=== PATIENT | male | born 1930 | race Caucasian/White ===

== ENCOUNTER 2016-10-04 09:51 | Inpatient (IN) | payer MEDICARE ==
[~2016-10-04] VITALS: Ht 185.4 cm; Wt 81.9 kg
[2016-10-04] MEDS ORDERED: NS 1000P @30 MLS/HR (KVO) IV SCH (10:15)
[2016-10-04 10:24] VITALS: BP 110/69; PULSE 98; RESP 16; TEMP 96.9; O2SAT 94
[2016-10-04] MEDS ORDERED: SIMV20TA PO (10:28)
[2016-10-04] MEDS ORDERED: FURO1TAB60 PO (10:28)
[2016-10-04] MEDS ORDERED: K-TA10TA PO (10:28)
[2016-10-04] MEDS ORDERED: VITA2000 PO (10:28)
[2016-10-04] MEDS ORDERED: ASPI81TA11 PO (10:28)
[2016-10-04] MEDS ORDERED: IOHEXOL 350 MG/ML 50 ML BTL (for Cath Lab) OTHER ONE (12:27)
[2016-10-04] MEDS ORDERED: HEPARIN-NS/PF INJ 500 ML ONE (12:39)
[2016-10-04] MEDS ORDERED: MIDAZOLAM HCL 2 MG/2 ML VIAL ONE (12:40)
--- NOTE | 2016-10-04 12:53 | RADRPT ---
EXAM DATE/TIME: 10/04/2016 11:58 [place] COMPARISON: No previous studies available for comparison. INDICATIONS : Evaluate for pneumoia, pneumothorax, or communicable disease. Pre AVR. Shortness of breath for 4 days . MEDICAL HISTORY : None. SURGICAL HISTORY : None. ENCOUNTER: Initial ACUITY: 4 - 6 days PAIN SCORE: 0/10 LOCATION: Bilateral chest FINDINGS: There is mild basilar edema and small bilateral effusions. Cardiac contours are grossly satisfactory for technique and projection. CONCLUSION: Mild basilar edema and small effusions. Elpidio Shea MD on October 04, 2016 at 12:51 Board Certified Radiologist. This report was verified electronically.
--- NOTE | 2016-10-04 13:52 | CATHPROC ---
[employer] HIS Report Study Information Study Number Admission Scheduled Start Study Start [id number] Oct 04 2016 9:51AM 10/04/2016 Oct 04 2016 12:27PM [place] Service Cardiac Catheterization Admit Source Facility Department Other [facility] - Acid Polymerization Operator Physician and Clinical Staff Initial Reid Jason Radiology Physician Assistant Twan RN, Justo Recorder Jovani Hand,LABORATORY ASSOCIATE(BS) Scrub Ebonie Alejandre,RT(R) (BS) X-Ray Cristy Mcdonald,RT(R) Procedures Performed Procedure Location (Site) Vessel Name Coronary Angiograms LCA Left Coronary Coronary Angiograms RCA Right Coronary Wire insertion Fem Art (right) Femoral Art Equipment Time Tailor Men'S Ready To Wear Description Size Mfg Part Number Used/Scraped ARROW INTERNATIONAL CATHETER, FR.7 BALLOON [id number] 12:36 FR 7 Used INC. WEDGE PRESSURE *[id number] TRANSDUCER, TRJooceAVE [id number] 12:36 DEAN JORGENSEN * Used W/STOCKCOCK *[id number] 534-545T *[id number] 534-520T *[id number] 534-622T *[id number] 534-521T *[id number] WIRE, AMPLATZ SUPER STIFF 13:28 [employer] 3MMJ 54453 *[id number] Used 3MMJ [id number] 12:36 [employer] INDUSTRIES PACK, CCL CUSTOM * Used *[id number] 12:36 [employer] PACER PEN, SKIN DUAL W/ RULER * Used *[id number] 13:00 [employer] MEDICAL SHEATH, FR6.5 PRELUDE 11CM FR 6.5 038ACT Used *[id number] 12:36 [employer] MEDICAL WIRE, 3MMJ .035 180CM 180CM Used *[id number] 13:16 [employer] MEDICAL WIRE, EXCHANGE 260CM 3MMJ 260CM Used *[id number] 13:11 [employer] MEDICAL WIRE, STRAIGHT TIP .035 * Used *[id number] 12:36 NAMIC MANIFOLD, 2 PORT * Used *[id number] 12:36 NAMIC MANIFOLD, 4 PORT * Used *[id number] 13:03 NAMIC TUBING, HIGH PRESSURE 20" 20" Used *[id number] 12:36 [employer] OMNIPAQUE, 350 MG, 150ML 150ML [id number] Used [id number] 12:36 VINCENT MEDICAL BLANKET,WARM AIR CCL * Used *[id number] 12:36 TERUMO MEDICAL SHEATH, FR5 TERUMO (10CM) FR 5 Used *[id number] 12:36 [employer]UM[employer] MEDICAL SHEATH, FR7 TERUMO (10CM) FR 7 Used *[id number] 13:14 [employer] PIGTAIL DUAL LUMEN CATHETER FR 6 9862 *[id number] Used Equipment Model, Serial, Lot Number and Expiration Data Description Model Number Serial Number Lot Number Expiration Date WIRE, EXCHANGE 260CM 3MMJ [id number] 07-29-2019 History: Current Medications Medication Dosage/Unit Route Frequency Last Date/Time Taken ASA Statins (any) History: Allergies Allergy Reaction No Known Allergies History: Risk Factors Family History of Hypertension Dyslipidemia Previous AL Previous Heart Failure Premature CAD No Yes No No Yes Prior Valve Prior PCI Prior CABG Surgery No No No Cerebrovascular Peripheral Artery Chronic Lung On Dialysis Diabetes Disease Disease Disease No No No No No History: Stress Tests Stress or Imaging Studies Performed No History: Other Current Smoker No Labs Hgb (g/dl) Hct (%) WBC (l/cumm) Platelets (thousands) 11.60-17.00 35.00-51.00 4.00-11.00 150.00-450.00 13.8 42.4 10.2 298 Glucose (mg/dl) BUN (mg/dl) Creatinine (mg/dl) BUN:Creatinine (1:x) 74.00-106.00 7.00-18.00 0.50-1.30 10.00-20.00 134 17 1.1 15.5 Na (meq/l) K (meq/l) 136.00-145.00 3.50-5.10 133 5.3 INR (PTT:PT) 0.90-1.10 1.1 CPK-MB (ng/ML) 0.50-3.60 Not Drawn Medication Medication Total Dose (Bolus/Oral) Medication Total Dosage/Unit 1% XYLOCAINE 20 mL FENTANYL 50 mcg VERSED 2 mg Medications (Bolus/Oral) Medication Time Given Dosage/Unit Administered By Reason FENTANYL 10/04/2016 12:56:33 PM 50 mcg Patient arrived on 50 mcg FENTANYL via Peripheral IV. Ordered by Reid Burns. 1% XYLOCAINE 10/04/2016 12:57:28 PM 20 mL Reid Burns 20 mL 1% XYLOCAINE given in lab by Reid Burns in Right Groin via Subcutaneous. Ordered by Reid Burns. VERSED 10/04/2016 12:57:36 PM 2 mg Patient arrived on 2 mg VERSED via Peripheral IV. Ordered by Reid Burns. Medication (Drip) Medication Time Given Dosage/Unit Concentration/Unit Diluent (ml) Solution IV Solutions 10/04/2016 12:27:32 PM 0 mL (IV) 500 NaCl .9 Patient arrived on IV Solutions in Left Forearm via Peripheral IV. Pump/Drip Flow = 20 ml/hr using Na Cl .9. Ordered by Reid Burns. Initial Case Assessment Cardiovascular HR Rhythm NIBP Chest Pain 98 SR 93/63 0 Edema Present Skin color Skin Mild Normal Warm Dry Circulatory - Right Pulses Dorsalis Pedis Femoral d 3 Scale (0,1,2,3,4,d) Circulatory - Left Pulses Dorsalis Pedis Femoral d 3 Scale (0,1,2,3,4,d) Circulatory - Lower Extremities Color Lower Right Color Lower Left Normal Normal Neurological State Oriented to time-place- Alert Moves all extremities person Respiration - General Respiration Rate SpO2 (%) (B/min) 20 96 Final Case Assessment Cardiovascular HR Rhythm NIBP Chest Pain 98 SR 93/63 0 Edema Present Skin color Skin Mild Normal Warm Dry Circulatory - Right Pulses Dorsalis Pedis Femoral d 3 Scale (0,1,2,3,4,d) Circulatory - Left Pulses Dorsalis Pedis Femoral d 3 Scale (0,1,2,3,4,d) Circulatory - Lower Extremities Color Lower Right Color Lower Left Normal Normal Neurological State Oriented to time-place- Alert Moves all extremities person Respiration - General Respiration Rate SpO2 (%) (B/min) 20 96 Chronological Log Time Study Chronological Log 12:27:18 Patient arrived via Bed. 12:27:19 Patient Name, D.O.B, / Armband Verified By R.N. 12:27:20 Consent signed by the physician and the patient and verified by the Acid Polymerization Operator staff. 12:27:20 Pre-op and post- op instructions given; patient acknowledges understanding of instructions. 12:27:26 Patient has been NPO for Less than 6Hrs. 12:27:27 Skin Breakdown- 12:27:29 Patient Warmer Placed on the Table. 12:27:32 A # 20 IV was noted in the Forearm (left). Grade = 0 Patient arrived on IV Solutions in Left Forearm via Peripheral IV. Pump/Drip Flow = 20 ml/hr us ing NaCl .9. Ordered by 12:27:32 Reid Burns. 12:27:33 History and physical on the chart or being dictated. Assessment: Initial Case, HR=98 BPM, Rhythm=SR, NIBP=93/63 mmhg, Chest Pain=0, Edema=Mild, [place] r=Normal, Skin = Warm, Dry Right Pulses: Franco Ped=d, Femoral=3 Left Pulses: Franco Ped=d, Femoral=3 12:27:34 Lower Right Extremities: Color=Normal Lower Left Extremities: Color=Normal Neurological: State=Alert, Ox3, AMBRIZ Respiration: Resp=20 B/min, SpO2=96 % Vitals capture started with the following parameters, Patient=Adult, Interval=5 min, Initial Pr nvqlfb=513 mmHg, 12:32:02 Deflation Rate=5 mmHg 12:32:39 CP=870 bpm, ISAY=933/69 mmhg, SpO2=95.0 %, Resp=9 B/min, Pain=0, Sejal=10, Damon=2 12:37:32 HR=98 bpm, NIBP=93/63 mmhg, SpO2=96.0 %, Resp=26 B/min, Pain=0, Sejal=10, Damon=2 12:38:16 Reference ECG taken 12:42:31 HR=98 bpm, FZOA=156/57 mmhg, SpO2=96.0 %, Resp=38 B/min, Pain=0, Sejal=10, Damon=2 12:47:32 HR=99 bpm, MTAC=905/63 mmhg, SpO2=96.0 %, Resp=35 B/min, Pain=0, Sejal=10, Damon=2 12:47:56 NIBP STAT measurement started. 12:48:04 Pressure channel 1 zeroed. 12:48:21 ZE=902 bpm, TBHX=300/66 mmhg, SpO2=96.0 %, Resp=28 B/min, Pain=0, Sejal=10, Damon=2 12:51:24 Bilateral groins prepped with 2% chlorhexidine, and with a 3 min. waiting time. 12:51:29 MD arrived. 12:52:33 ZG=840 bpm, KRRL=238/65 mmhg, SpO2=96.0 %, Resp=20 B/min, Pain=0, Sejal=10, Damon=2 Time Out. Correct patient, correct procedure,correct physician, power injector not loaded with contrast with surgical 12:55:02 team present. Time Out Concurred by MD, individual staff in procedure 12:55:39 Pressure channel 1 zeroed. 12:55:41 Pressure channel 2 zeroed. 12:56:33 Patient arrived on 50 mcg FENTANYL via Peripheral IV. Ordered by Reid Burns. 12:57:19 Case Start 12:57:28 20 mL 1% XYLOCAINE given in lab by Reid Burns in Right Groin via Subcutaneous. Ordered by Reid Burns. 12:57:34 LW=133 bpm, UINK=789/64 mmhg, SpO2=95.0 %, Resp=25 B/min, Pain=0, Sejal=10, Damon=2 12:57:36 Patient arrived on 2 mg VERSED via Peripheral IV. Ordered by Reid Burns. 12:57:55 Access site was Right Femoral Artery. 12:58:14 A SHEATH, FR6.5 PRELUDE 11CM FR 6.5 was advanced into the Fem Art (right) using the Percuta neous technique. 12:59:00 Access site was Right Femoral Vein. 12:59:32 A SHEATH, FR7 TERUMO (10CM) FR 7 was advanced into the Fem Vein (right) using the Percutane ous technique. 13:00:35 A CATHETER, FR.7 BALLOON WEDGE PRESSURE FR 7 was inserted via Fem Vein (right) Recorded Pressure: RA, JP=393, Condition=Condition 1 13:01:46 (Right Atrium) RA Recorded Pressure: RV, TD=082, Condition=Condition 1 13:02:02 (Right Ventricle) RV 13:02:35 RQ=606 bpm, XXMH=225/54 mmhg, SpO2=91.0 %, Resp=26 B/min, Pain=0, Sejla=10, Damon=2 Recorded Pressure: MPA, HR=97, Condition=Condition 1 13:06:26 (Main Pulmonary Artery) MPA 60/29/42 13:07:03 Saturation: Site=PA (Pulmonary Artery) , O2=48.4 %, Hgb=13.8 gm/dl, Condition=Condition 1. Used in calculation. 13:07:32 HR=98 bpm, AAKJ=342/67 mmhg, SpO2=92.0 %, Resp=25 B/min, Pain=0, Sejal=10, Damon=2 13:07:52 Saturation: Site=FA (Femoral Artery) , O2=92.8 %, Hgb=13.8 gm/dl, Condition=Condition 1. Us ed in calculation. 13:08:16 Korbel Rasheed Catheter Removed A AL 1 INFINITI CATHETER FR 5 was advanced over a wire. OMNIPAQUE, 350 MG, 150ML 150ML was used for 13:08:31 injections. 13:12:35 XR=382 bpm, FOCQ=771/61 mmhg, SpO2=97.0 %, Resp=20 B/min, Pain=0, Sejal=10, Damon=2 13:13:18 A WIRE, STRAIGHT TIP .035 * was inserted via Fem Art (right). 13:13:24 The previous wire was exchanged for a WIRE, 3MMJ .035 180CM 180CM. After removing the current catheter a PIGTAIL DUAL LUMEN CATHETER FR 6 was advanced over a WIRE , 3MMJ .035 13:13:33 180CM 180CM. 13:16:59 Catheter was removed A AL 1 INFINITI CATHETER FR 5 was advanced over a wire. OMNIPAQUE, 350 MG, 150ML 150ML was used for 13:17:20 injections. 13:17:32 A WIRE, STRAIGHT TIP .035 * was inserted via Fem Art (right). 13:17:34 HR=99 bpm, UXGB=996/62 mmhg, SpO2=97.0 %, Resp=20 B/min, Pain=0, Sejal=10, Damon=2 13:19:54 The previous wire was exchanged for a WIRE, EXCHANGE 260CM 3MMJ 260CM. After removing the current catheter a PIGTAIL DUAL LUMEN CATHETER FR 6 was advanced over a WIRE , EXCHANGE 13:20:04 260CM 3MMJ 260CM. Recorded Pressure: LV, Ao, SH=514, Condition=Condition 1 13:21:31 (Left Ventricle) LV 128/10/21, (Aorta) Ao -17/-23/-20 Recorded Pressure: LV, Ao, CN=357, Condition=Condition 1 13:22:03 (Left Ventricle) LV 130/12/23, (Aorta) Ao 84/52/66 Recorded Pressure: LV, Ao, XN=309, Condition=Condition 1 13:22:26 (Left Ventricle) LV 114/29/37, (Aorta) Ao 92/49/68 13:22:35 HR=97 bpm, NIBP=95/63 mmhg, SpO2=97.0 %, Resp=23 B/min, Pain=0, Sejal=10, Damon=2 After removing the current catheter a JL 5.0 INFINITI CATHETER FR 6 was advanced over a WIRE, E XCHANGE 260CM 13:23:38 3MMJ 260CM. Recorded Pressure: Ao, HR=97, Condition=Condition 1 13:25:40 (Aorta) Ao 90/49/68 13:27:34 HR=96 bpm, NIBP=93/65 mmhg, SpO2=97.0 %, Resp=25 B/min, Pain=0, Sejal=10, Damon=2 Recorded Pressure: Ao, HR=98, Condition=Condition 1 13:27:59 (Aorta) Ao 94/50/70 Recorded Pressure: Ao, HR=95, Condition=Condition 1 13:28:29 (Aorta) Ao 78/44/56 13:29:55 The LCA was injected and visualized at various angles. OMNIPAQUE, 350 MG, 150ML 150ML used . Recorded Pressure: Ao, WL=745, Condition=Condition 1 13:30:48 (Aorta) Ao 91/55/71 After removing the current catheter a JR 4.0 INFINITI CATHETER FR 5 was advanced over a WIRE, A MPLATZ SUPER 13:32:07 STIFF 3MMJ 3MMJ. 13:32:33 DS=719 bpm, MQJO=135/67 mmhg, SpO2=97.0 %, Resp=18 B/min, Pain=0, Sejal=10, Damon=2 13:33:11 The RCA was injected and visualized at various angles. OMNIPAQUE, 350 MG, 150ML 150ML used . 13:34:36 Catheter was removed 13:34:48 Case End Assessment: Final Case, HR=98 BPM, Rhythm=SR, NIBP=93/63 mmhg, Chest Pain=0, Edema=Mild, Color= Normal, Skin = Warm, Dry Right Pulses: Franco Ped=d, Femoral=3 Left Pulses: Franco Ped=d, Femoral=3 13:35:04 Lower Right Extremities: Color=Normal Lower Left Extremities: Color=Normal Neurological: State=Alert, Ox3, AMBRIZ Respiration: Resp=20 B/min, SpO2=96 % 13:37:15 Sheath(s) left in place, will be removed in Holding Area 13:37:34 HR=99 bpm, NIBP=98/64 mmhg, SpO2=96.0 %, Resp=30 B/min, Pain=0, Sejal=10, Damon=2 13:39:00 Sterile dressing applied to site 13:39:17 No case complications noted. 13:39:18 Cine recording checked. 13:39:22 Bedside Report will be given. 13:39:25 Contrast Scanned 13:39:30 A Left and Right Heart Cath was performed. 13:42:28 Vitals capture stopped. 13:42:32 Patient moved to [facility] End Study - Contrast Media Used In Study Contrast Total Opened (mL) Total Used (mL) Total Wasted (mL) Omnipaque 35 35 0 End Study - Maximum Contrast Load Max Contrast Load (mL) 353.1 End Study - Radiation Exposure Fluoro Time (minutes) 12.2 End Study - Patient Disposition Complications Transferred To Telemetry Bed
[2016-10-04] MEDS ORDERED: MISC INFORMATION XX ONE (14:15)
[2016-10-04] MEDS ORDERED: ONDANSETRON HCL 4 MG/2 ML VIAL IV PRN ×2 (14:15→20:00)
[2016-10-04] MEDS ORDERED: BACITRACIN OINT 0.9 GM PKT TOP ONE (14:15)
[2016-10-04] MEDS ORDERED: LORazepam 2 MG/ML VIAL IV PRN (14:15)
[2016-10-04] MEDS ORDERED: MORPHINE SULFATE 4 MG/ML INJ IV PUSH PRN (14:15)
[2016-10-04] MEDS ORDERED: LORazepam 2 MG/ML VIAL IM PRN (14:15)
[2016-10-04] MEDS ORDERED: LIDOCAINE HCL 1% 50 ML VIAL INFIL PRN (14:15)
[2016-10-04] MEDS ORDERED: METOCLOPRAMIDE HCL 10 MG/2 ML VIAL IV PRN (14:15)
[2016-10-04] MEDS ORDERED: ATROPINE SULFATE 1 MG/ML VIAL IV PRN (14:15)
[2016-10-04] MEDS ORDERED: SODIUM CHLOR 0.9% 250 ML INJ 250 ML IV PRN (14:15)
--- NOTE | 2016-10-04 14:25 | MA ---
cc: PETRAESSIESHORTY DATE: 10/04/2016 PROCEDURE PERFORMED 1. Fluoroscopy with interpretation. 2. Coronary angiography. 3. Right heart catheterization. 4. Left heart catheterization. 5. Coronary angiography. METHOD Risks, benefits, alternatives were discussed with the patient. The patient understood and consented to the procedure. The patient was brought into the catheterization lab and placed on the catheterization table. Right groin was prepped and draped in sterile fashion. Right groin was anesthetized with 2% lidocaine. The right common femoral artery is cannulated and a 6-Mexican 7 cm sheath was placed in the common femoral artery and a 7-Mexican sheath was placed in the right femoral vein. RIGHT HEART CATHETERIZATION A 7-Mexican [place]Rasheed pulmonary arterial catheter was advanced to the right femoral venous sheath to the level of right atrium under fluoroscopic guidance. Hemodynamics were performed in all chambers all advancing to the pulmonary capillary wedge position. HEMODYNAMICS 1. Right atrium 22 mmHg. 2. Right ventricular pressure is 61/14 mmHg. 3. Pulmonary arterial pressure measured 60/30 mmHg with a mean pressure of 42 mmHg. 4. Cardiac output 3.0 liters per minute. Cardiac index 1.5 liters per minute per meter squared. 5. We were unable to get an accurate pulmonary capillary wedge pressure tracing. LEFT HEART CATHETERIZATION A 5-Mexican AL-1 catheter was used to direct a straight wire across the aortic valve. AL-1 catheter was advanced into the left ventricle with 260 cm J wire was then advanced through the AL-1 into left ventricle. AL-1 catheter was removed. 6-Mexican double-lumen pigtail catheter was then advanced over the J-wire into the left ventricle. Simultaneous left ventricular and aortic pressure tracings were performed. Left ventricular pressure 130/12 mmHg. Left end-diastolic pressure 23 mmHg. Aortic pressure measured at 78/44 mmHg. His aortic valve area is calculating at 0.49 cm2 with a mean gradient of 32.55 mmHg. CORONARY ANGIOGRAPHY 1. Left main coronary has a 50% ostial eccentric stenosis, moderately calcified. 2. Left anterior descending coronary has moderate calcium present through its entire prox to mid course. At the bifurcation of a moderate-sized first diagonal branch there is a 75% stenosis. The diagonal branch has a steep angulated takeoff about 60-70% ostial stenosis. The mid left anterior descending coronary has a bifurcation with a 90% stenosis of both the smaller second diagonal branch and the mid left anterior descending coronary artery. 3. Circumflex is a codominant vessel giving rise to a posterior descending branch. There is mild luminal irregularities in the circumflex up until a small sub-branch off the left side of the PDA which has a 80% stenosis. 4. The right coronary is a large vessel and codominant. Mid-right coronary has a 60% eccentric stenosis but the distal posterior descending branch has a 90% stenosis. CONCLUSIONS 1. Likely severe aortic stenosis with slightly reduced mean gradient secondary to cardiomyopathy. Aortic valve area is critical with a moderate mean gradient. 2. 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 3. Moderate to severe pulmonary hypertension. 4. Elevated left and right-sided filling pressures. 5. Reduced cardiac output and index. PLAN Will have a lengthy discussion regarding potential options. Will have to strongly consider surgical aortic valve replacement and coronary artery bypass surgery. Will determine his candidacy based on preoperative testing. MD IBIS Hidalgo/MERVIN /1:44 PM /2:03 PM
--- NOTE | 2016-10-04 15:23 | PD.CAR.PN ---
CVT Progress Note Subjective/Hospital Course: pt seen and evaluated, full consult dictated sts data discussed with pt RISK SCORES About the STS Risk Calculator Procedure: AV Replacement + CAB Risk of Mortality: 7.017% Morbidity or Mortality: 33.919% Long Length of Stay: 16.105% Short Length of Stay: 11.551% Permanent Stroke: 2.401% Prolonged Ventilation: 22.645% DSW Infection: 0.581% Renal Failure: 11.016% Reoperation: 11.697% Objective: Vital Signs Date Time Temp Pulse Resp B/P Pulse Ox O2 Delivery O2 Flow Rate FiO2 10/04/16 14:07 98 Room Air 10/04/16 10:24 96.9 98 16 110/69 94 Labs: Laboratory Tests Test 10/04/16 10/04/16 10:15 14:00 Blood Type A POSITIVE Antibody Screen NEGATIVE Blood Bank Comment Albumin 3.4 GM/DL (3.4-5.0) Alexandria Yoo Oct 04, 2016 15:23
[2016-10-04] MEDS ORDERED: FUROSEMIDE 40 MG/4 ML VIAL IV PUSH ONE (16:45)
[2016-10-04 16:55] LABS: HEMOGLOBIN A1a 1.8 %; HEMOGLOBIN A1b 0.9 %; HEMOGLOBIN Ao 82.7 %; HEMOGLOBIN F 2.6 %; HEMOGLOBIN P3 3.9 %
[2016-10-04 18:51] LABS: ALKALINE PHOSPHATASE 104 U/L (45-117); ALT (GPT) 717 U/L (12-78); ANION GAP 15 MEQ/L (5-15); AST (GOT) 552 U/L (15-37); BICARBONATE 17.4 MEQ/L (21.0-32.0); BLOOD UREA NITROGEN 52 MG/DL (7-18); CHLORIDE 88 MEQ/L (98-107); GLOMERULAR FILTRATION RATE 33 ML/MIN (>89); POTASSIUM 5.6 MEQ/L (3.5-5.1); TOTAL BILIRUBIN ADULT 1.8 MG/DL (0.2-1.0)
[2016-10-04 19:10] LABS: SODIUM (NA) 120 MEQ/L (136-145)
[2016-10-04 20:00] VITALS: BP 98/60; PULSE 103; RESP 20; TEMP 97.3; O2SAT 97
[2016-10-04] MEDS ORDERED: ACETAMINOPHEN/HYDROcodone 325 MG/5 MG TAB PO PRN (20:00)
[2016-10-04] MEDS ORDERED: LACTULOSE SYRUP 20 GM/30 ML CUP PO PRN (20:00)
[2016-10-04] MEDS ORDERED: BISACODYL 10 MG SUPP RECTAL PRN (20:00)
[2016-10-04] MEDS ORDERED: MAGNESIUM HYDROXIDE SUSP 30 ML CUP PO PRN (20:00)
[2016-10-04] MEDS ORDERED: RESP: ALBUTEROL 2.5 MG/3 ML NEB (PRN) INH (20:00)
[2016-10-04] MEDS ORDERED: SODIUM CHLORIDE 0.9% FLUSH 10 ML FLUSH IV FLUSH PRN (20:00)
[2016-10-04] MEDS ORDERED: SENNOSIDES 8.6 MG TAB PO PRN (20:00)
[2016-10-04] MEDS ORDERED: CHLORHEXIDINE GLUCONATE 2 % 1 PACK (2 CLOTHS) TOP PRN (20:00)
[2016-10-04] MEDS ORDERED: MISCELLANEOUS NURSING INFORMATION XX SCH (20:00)
[2016-10-04] MEDS ORDERED: ACETAMINOPHEN 325 MG TAB PO PRN (20:00)
--- NOTE | 2016-10-04 20:00 | HHI.HP ---
[facility] Service Critical Care Medicine Primary Care Physician Sonido Chance MD Admission Diagnosis Shortness of breath, severe aortic stenosis Diagnosis: (1) Aortic stenosis, severe Diagnosis: Principal (2) Coronary artery disease Diagnosis: Principal (3) Dyslipidemia Diagnosis: Principal (4) Chronic kidney disease (CKD) stage G3b/A3, moderately decreased glomerular filtration rate (GFR) between 30-44 mL/min/1.73 square meter and albuminuria creatinine ratio greater than 300 mg/g Diagnosis: Principal (5) Diverticulosis Diagnosis: Principal (6) Hemorrhoids Diagnosis: Principal (7) Skin cancer Diagnosis: Principal Chief Complaint: Admission for possible balloon valvoplasty for severe aortic stenosis Travel History International Travel<30 Days: No Contact w/Intl Traveler <30 Da: No Traveled to Known Affected Are: No History of Present Illness 85-year-old male. Date of admission 10/04/2016. Past medical history includes coronary artery disease angina, dyslipidemia, chronic kidney disease stage 3-4, diverticulosis and internal hemorrhoids. He has been increasing short of breath. Today patient with right and left heart cardiac catheterization which revealed right atrial pressure 22 mmHg, RV pressure 61/14 , PAP 60/30 with a mean of 21, cardiac output 3.0 L/m. Cardiac index 1.5. Cardiac catheterization revealed left main 50%, LAD 75% diagonal, 90% second diagonal, left circumflex 80%, left circumflex PDA percent. Severe excessive evaluated 0.4 mmHg. Patient with diagnosis severe three-vessel coronary disease , moderate to severe portal hypertension with elevated right left heart pressures and decreased cardiac output. Patient was in go home under hospice/ DNR however wishes for intervention at the present time. Tomorrow, planned discussed possible intervention including possible balloon valvuloplasty. Received 40 mg IV Lasix prior to arrival. Currently on 4 L nasal cannula complaining of some shortness of breath. Review of Systems Constitutional: COMPLAINS OF: Fatigue, Weight loss, DENIES: Fever, Weight gain Endocrine: DENIES: Polydipsia, Polyuria Eyes: DENIES: Blurred vision, Double Vision Ears, nose, mouth, throat: DENIES: Tinnitus Respiratory: COMPLAINS OF: Apneas, Shortness of breath, DENIES: Hemoptysis Cardiovascular: COMPLAINS OF: Lower Extremity Edema, DENIES: Chest pain Gastrointestinal: DENIES: Abdominal pain Genitourinary: DENIES: Urgency, Nocturia Musculoskeletal: DENIES: Joint pain Integumentary: DENIES: Abnormal pigmentation Hematologic/lymphatic: DENIES: Bruising Immunologic/allergic: DENIES: Eczema Neurologic: DENIES: Headache Psychiatric: COMPLAINS OF: Anxiety, Confusion Past Family Social History Allergies: Coded Allergies: No Known Allergies (Unverified , 10/04/16) Past Medical History Coronary artery disease Dyslipidemia Severe aortic stenosis Chronic kidney disease stage 3-4 Diverticulosis Internal hemorrhoids Skin cancer Past Surgical History Bilateral inguinal hernia repair Skin cancer removal Reported Medications Simvastatin 20 mg by mouth daily Furosemide 40 mg by mouth daily Aspirin 81 mg by mouth daily Potassium chloride 10 mEq by mouth twice a day Cholecalciferol 2000 units by mouth daily Active Ordered Medications Reviewed in EMR Family History Father 50s likely from heart disease. Mother lived to age 90. Old age. Social History Denies tobacco, alcohol or IV drug use. Physical Exam Vital Signs Vital Signs Date Time Temp Pulse Resp B/P Pulse Ox O2 Delivery O2 Flow Rate FiO2 10/04/16 14:07 98 Room Air 10/04/16 10:24 96.9 98 16 110/69 94 Physical Exam GENERAL: 85-year-old male, critically ill currently resting in bed on nasal cannula SKIN: Cool and dry. No rash HEAD: Atraumatic. Normocephalic. EYES: Pupils equal and round about 2 mm bilaterally and reactive. No scleral icterus. No injection or drainage. ENT: No nasal bleeding or discharge. Mucous membranes pink and moist. Oropharynx without erythema NECK: Trachea midline. No JVD. CARDIOVASCULAR: Regular rate and rhythm. S1, S2 no S4. 4/6 systolic murmur right upper sternal border RESPIRATORY: Diminished breath sounds in the bases. Symmetrical excursion. No wheezing GASTROINTESTINAL: Abdomen soft, non-tender, nondistended. Active bowel sounds MUSCULOSKELETAL: Extremities with trace lower extremity peripheral edema. No obvious deformities. NEUROLOGICAL: Awake and alert. No obvious cranial nerve deficits. Motor grossly within normal limits. Five out of 5 muscle strength in the arms and legs. Normal speech. Somewhat confused and anxious Laboratory Laboratory Tests Test 10/04/16 10/04/16 10:15 14:00 Blood Type A POSITIVE Antibody Screen NEGATIVE Blood Bank Comment Sodium Level 120 Potassium Level 5.6 Chloride Level 88 Carbon Dioxide Level 17.4 Anion Gap 15 Blood Urea Nitrogen 52 Creatinine 1.96 Estimat Glomerular Filtration 33 Rate Random Glucose 118 Hemoglobin A1c 5.8 Calcium Level 7.9 Total Bilirubin 1.8 Aspartate Amino Transf 552 (AST/SGOT) Alanine Aminotransferase 717 (ALT/SGPT) Alkaline Phosphatase 104 Total Protein 5.9 Albumin 3.4 Result Diagram: 10/04/16 1400 Imaging Last Impressions Chest X-Ray 10/04/16 0000 Signed Impressions: Service Date/Time: Tuesday, October 04, 2016 11:58 - CONCLUSION: Mild basilar edema and small effusions. Elpidio Shea MD Assessment and Plan Assessment and Plan Neuro/Psych: Anxiety Acetaminophen for fever/pain management Limit sedation CV: Severe aortic stenosis Moderate to severe pulmonary hypertension Severe three-vessel coronary disease Dyslipidemia Right Heart catheterization revealed right atrium 22 mmHg, RV pressure 61/14, PAP 60/30, cardiac output 2.0. Cardiac index 1.5. Left heart catheterization revealed left main 50%, LAD 70% 5% percentile, 90% second diagonal, left circumflex 80% proximal, 90% PDA. Severe aortic stenosis valve area 0.49 cm2 Simvastatin 20 mg daily. Pravastatin 40 mg by mouth daily for dyslipidemia Continue furosemide 40 mg by mouth daily Continue aspirin 81 mg by mouth daily Dr. Burns/cardiology CT surgery consulted possible balloon valvuloplasty Resp: Acute respiratory insufficiency Chest x-ray revealed atelectasis/small pleural effusions bilaterally. Nasal cannula to maintain saturations greater than equal to 92% Incentive spirometry while awake GI: Diverticulosis Internal hemorrhoids Elevated transaminases Patient is currently nothing by mouth Pantoprazole for GI prophylaxis Bowel regimen issue with Kita-Colace twice a day Check liver ultrasound/test panel/CPK. Recheck liver function tests in a.m. : Chacko catheter has been placed for accurate I's and O's in a critically ill patient on diuretics Endo: Sliding-scale insulin if indicated to maintain euglycemia/low regimen Check TSH and cortisol levels with low sodium Renal: History of chronic kidney disease unknown staging Crit is currently 1.96. Heme: CBC is currently pending ID: Monitor for infection MSK: PT evaluate and treat FEN: Hyponatremia Hyperkalemia Check urine/serum osm, TSH, cortisol uric acid. Urine sodium pending. Hyperkalemia protocol initiated. Recheck in 3 hours. Follow-up on EKG Access - Utilize peripheral IV. Central line if indicated Prophylaxis -GI -pantoprazole - DVT - SCD/heparin subcutaneous Critical Care: The total critical care time was 45 minutes. Time to perform other separately billable procedures was not included in the critical care time. - Code Status Full code Discussed Condition With Daughter. Patient. Care plan discussed and all questions answered. Problem Qualifiers (1) Coronary artery disease: Qualified Code: I25.10 - Coronary artery disease involving [place] heart without angina pectoris, unspecified vessel or lesion type (2) Diverticulosis: Qualified Code: K57.90 - Diverticulosis of intestine without bleeding, unspecified intestinal tract location (3) Hemorrhoids: Qualified Code: K64.9 - Hemorrhoids, unspecified hemorrhoid type Kp Manrique MD Oct 04, 2016 20:00
[2016-10-04] MEDS ORDERED: DEXTROSE 50% IN WATER 50 ML VIAL(D50) IV PUSH ONE (20:15)
[2016-10-04] MEDS ORDERED: SODIUM BICARBONATE 8.4% SOLN 50 MEQ/50 ML VIAL SLOW IVP ONE (20:15)
[2016-10-04] MEDS ORDERED: SODIUM POLYSTYRENE SULFONATE SUSP 15 GM/60 ML CUP PO ONE (20:15)
[2016-10-04] MEDS ORDERED: CALCIUM GLUCONATE 10% 1 GM/10 ML VIAL SLOW IVP ONE (20:15)
[2016-10-04] MEDS ORDERED: INSULIN HUMAN REGULAR 1,000 UNITS/10 ML VIAL IV PUSH ONE (20:15)
[2016-10-04] MEDS ORDERED: CALCIUM GLUCONATE INJ 1 GM in SODIUM CHLORIDE 0.9% INJ 100 ML IV ONE (20:30)
[2016-10-04] MEDS ORDERED: DEXTROSE 50% IN WATER 50 ML SYRINGE IV ONE (20:45)
[2016-10-04] MEDS: HEPARIN SODIUM - SQ 10,000 UNITS/ML VIAL SQ SCH (20:48)
[2016-10-04] MEDS: DOCUSATE SODIUM 50 MG/SENNA 8.6 MG TAB PO SCH (20:48)
[2016-10-04] MEDS: SODIUM CHLORIDE 0.9% FLUSH 10 ML FLUSH IV FLUSH SCH (20:49)
[2016-10-04 22:29] VITALS: O2SAT 97
[2016-10-04 23:00] VITALS: BP 104/63; PULSE 109; RESP 20; TEMP 97.5; O2SAT 99
[2016-10-04 23:25] LABS: BACTERIA, URINE MANY /hpf; BLOOD, URINE LARGE (NEG); COMMENT (UR) CULTURE INDICATED; CULTURE IF INDICATED CULTURE INDICATED; GLUCOSE,URINE NEG (NEG); KETONE, URINE NEG (NEG); NITRITE,URINE NEG (NEG); PH, URINE 5.5 (5.0-8.5); URINE COLOR YELLOW (YELLW/STRAW)
[2016-10-04 23:46] LABS: MEAN CELL VOLUME 93.2 FL (80.0-100.0); MEAN CORPUSCULAR HGB CONC 33.3 % (32.0-36.0); PLATELET COUNT 168 TH/MM3 (150-450); RED BLOOD COUNT 4.19 MIL/MM3 (4.50-5.90); RED CELL DISTRIBUTION WIDTH 13.8 % (11.6-17.2); REVIEW FLAG FINAL; WHITE BLOOD COUNT 18.4 TH/MM3 (4.0-11.0)
[2016-10-05] VITALS (8 sets, daily range): BP systolic 90–100; BP diastolic 55–65; PULSE 98–106; RESP 18–20; TEMP 97.6–98; O2SAT 95–98
[2016-10-05 00:09] LABS: URIC ACID 12.1 MG/DL (2.6-7.2)
[2016-10-05 00:18] LABS: POTASSIUM 5.1 MEQ/L (3.5-5.1)
[2016-10-05 00:40] LABS: CKMB 16.4 NG/ML (0.5-3.6)
[2016-10-05] MEDS ORDERED: CHLORHEXIDINE GLUCONATE 2 % 1 PACK (2 CLOTHS) TOP SCH (04:00)
[2016-10-05 04:28] LABS: AUTOMATED NEUTROPHIL # 16.9 TH/MM3 (1.8-7.7); BASOPHIL # 0.1 TH/MM3 (0-0.2); BASOPHIL % 0.3 % (0.0-2.0); EOSINOPHIL % 0.1 % (0.0-4.0); HEMATOCRIT 40.7 % (39.0-51.0); LYMPH % 4.6 % (9.0-44.0); LYMPHOCYTE # 0.9 TH/MM3 (1.0-4.8); MEAN CELL VOLUME 93.4 FL (80.0-100.0); MEAN CORPUSCULAR HEMOGLOBIN 30.9 PG (27.0-34.0); MONO % 8.4 % (0.0-8.0); NEUT % 86.6 % (16.0-70.0); PLATELET COUNT 158 TH/MM3 (150-450); RED BLOOD COUNT 4.36 MIL/MM3 (4.50-5.90); RED CELL DISTRIBUTION WIDTH 13.7 % (11.6-17.2); WHITE BLOOD COUNT 19.5 TH/MM3 (4.0-11.0)
[2016-10-05 04:36] LABS: HEMO FLAGS AUTO DIFF
[2016-10-05 04:53] LABS: APTT (PATIENT) 29.2 SEC (24.3-30.1); INTERNATIONAL NORMALIZED RATIO 1.9 RATIO; PROTHROMBIN TIME - PATIENT 21.4 SEC (9.8-11.6)
[2016-10-05 04:58] LABS: ANION GAP 16 MEQ/L (5-15); BICARBONATE 20.8 MEQ/L (21.0-32.0); BLOOD UREA NITROGEN 58 MG/DL (7-18); CHLORIDE 89 MEQ/L (98-107); POTASSIUM 4.9 MEQ/L (3.5-5.1); SODIUM (NA) 126 MEQ/L (136-145)
[2016-10-05 05:07] LABS: ALKALINE PHOSPHATASE 102 U/L (45-117); ALT (GPT) 1262 U/L (12-78); AST (GOT) 1005 U/L (15-37)
[2016-10-05 06:13] LABS: BANDS 3 % (0-6); CORRECTED NUCLEATED RBC 2 /100 WBC (0-0); METAMYELOCYTES 1 % (0-1); NEUTROPHIL # MANUAL DIFF 17.7 TH/MM3 (1.8-7.7); POLYS (SEG NEUTROPHILS) 87 % (16-70); SCAN/DIFF FINAL DIFF MANUAL; WBC DIFF SAMPLE 100
[2016-10-05 06:14] LABS: HOWELL-JOLLY BODIES PRESENT (NONE SEEN); PLATELET ESTIMATE SMEAR NORMAL (NORMAL); PLATELET MORPHOLOGY NORMAL (NORMAL)
[2016-10-05 06:18] LABS: POLYCHROMASIA 3.5 % (0.0-1.9)
[2016-10-05] MEDS ORDERED: FUROSEMIDE 40 MG/4 ML VIAL IV PUSH ONE (07:00)
--- NOTE | 2016-10-05 07:45 | MB ---
cc: DAVID MONET MD DATE OF 1930 HISTORY OF THE PRESENT ILLNESS A very pleasant 85-year-old patient of Dr. Tristin Burns, Dr. Sonido Chance primary care physician, apparently has been having some symptoms of shortness of breath, dyspnea, fatigue for the last 3 months. Prior to that he was walking two miles a day. Still continues to do some of his housework. Last week he woke up with significant shortness of breath. Positive for orthopnea, paroxysmal nocturnal dyspnea. Presented to Dr. Burns's office. Also had an abnormal EKG which showed some Q-waves in the inferior leads, some LVH by EKG criteria and a stat echo which showed severe aortic stenosis with EF of 30%. The patient also had some moderate mitral regurgitation, some mild aortic insufficiency. He underwent cardiac cath today which showed an EF of 35%, left main 50% stenosed, proximal LAD 70%, mid distal LAD 90%, diagonal had 70%, the circ was 80%. The RCA 90%. We were consulted to evaluate for coronary artery bypass grafting, also aortic valve replacement. The STS data was actually done which showed a risk mortality of 12.5. He had a frailty test earlier today which did show an index of 05/01. The cardiac films have been evaluated by Dr. David Monet and also discussed with Dr. Burns. PAST MEDICAL HISTORY The patient's past medical history significant for: 1. Aortic stenosis. 2. Congestive heart failure class IV. 3. Cardiomyopathy. 4. Chronic kidney disease stage II. 5. Combined systolic diastolic heart failure. 6. Hypertension. 7. Insomnia. 8. Vitamin D deficiency. PAST SURGICAL HISTORY Include: 1. Colonoscopy. 2. Bilateral hernia repair. ALLERGIES NO KNOWN ALLERGIES. MEDICATIONS Home meds include: 1. Aspirin 81 daily. 2. Lasix 40 daily. 3. Potassium 10 b.i.d. 4. Simvastatin 20. 5. Vitamin D3. FAMILY HISTORY Mother at 90 of old age. Father at 55 from an [place]. SOCIAL HISTORY The patient , two children. No tobacco or alcohol. He retired from beer delivery. REVIEW OF SYSTEMS GENERAL: No night sweats, fever, heat and cold intolerance. SKIN: No psoriasis, itching or hives. He does have some lesion on his scalp that is to be removed with squamous cell. RESPIRATORY: Positive for shortness of breath. Positive for paroxysmal nocturnal dyspnea. Positive for orthopnea. CARDIOVASCULAR: He denies any chest pain. He denies any lower extremity edema. GASTROINTESTINAL: He does suffer from occasional constipation. No diarrhea. GENITOURINARY: No burning, frequency, urgency. CENTRAL NERVOUS SYSTEM: No history of TIA, CVA, seizure disorder. ENDOCRINE: No history of diabetes and/or hypothyroidism. PHYSICAL EXAMINATION VITAL SIGNS: On exam blood pressure 110/70, heart rate of 98, temperature 97.9. GENERAL: The patient is awake, alert with mild to moderate shortness of breath with minimal exertion and at rest. HEENT: Head is normocephalic, atraumatic. Pupils equal and reactive. Oral mucosa pink, moist. Oral mucosa not noninjected. He does wear upper and lower dentures. CARDIOVASCULAR: Heart sounds S1-S2, grade 2/6 systolic murmur best noted at the left upper sternal border. No rubs or gallops. LUNGS: Diminished in the bases, few basilar crackles. ABDOMEN: Soft, round, obese, nontender. No masses or organomegaly. EXTREMITIES: Reveal a dressing to his right groin with some very small amount of bloody drainage. EXTREMITIES: His lower extremity pulses reveal Doppler to the left posterior tibia . The right I am unable to get a right dorsalis pedis. I am able to get a Doppler posterior tibia. LABORATORY FINDINGS Shows a sodium of 133, potassium 5.3, BUN of 20, creatinine 1.15. Hemoglobin 13, hematocrit of 42, white cell count 10, platelet count 298. INR was 1.1. EKG as above. Echocardiogram as above. Chest x-ray showed some mild basilar edema and small effusions. IMPRESSION This is an 85-year-old male with class IV CHF, combined systolic diastolic heart failure probably related to his severe aortic valve. He has a valve area 0.47, EF of 30%, multivessel disease including a 50% left main, 90% mid distal LAD, circ of 80%, RCA 90%. After discussion with Dr. Burns and evaluation of the cardiac cath and all comorbidities including his frailty test and his mortality risk of 12.5, plan is for evaluation for high-risk PCI with Impella to the LAD and the RCA, followed with balloon valvuloplasty, recovery and then evaluation for transcatheter aortic valve replacement. Further discussion and planning as per Dr. David Monet. No immediate cardiovascular open heart surgery at this time. DICTATED BY: DAIANA Joseph David Monet SK/KK /4:36 PM /7:40 AM
[2016-10-05] MEDS ORDERED: PANTOPRAZOLE SODIUM 40 MG VIAL IV SCH (09:00)
[2016-10-05] MEDS ORDERED: FUROSEMIDE 40 MG TAB PO SCH (09:00)
[2016-10-05] MEDS ORDERED: PRAVASTATIN SOD 40 MG TAB PO SCH (09:00)
[2016-10-05] MEDS ORDERED: CHOLECALCIFEROL (VIT D3) 1000 UNIT TAB PO SCH (09:00)
[2016-10-05] MEDS: DOCUSATE SODIUM 50 MG/SENNA 8.6 MG TAB PO SCH (09:00)
[2016-10-05] MEDS ORDERED: ASPIRIN EC 81 MG TABEC PO SCH (09:00)
--- NOTE | 2016-10-05 09:27 | HHI.CCPN ---
Subjective Remarks/Hospital Course 85-year-old male. Date of admission 10/04/2016. Past medical history includes coronary artery disease angina, dyslipidemia, chronic kidney disease stage 3-4, diverticulosis and internal hemorrhoids. He has been increasing short of breath. Today patient with right and left heart cardiac catheterization which revealed right atrial pressure 22 mmHg, RV pressure 61/14 , PAP 60/30 with a mean of 21, cardiac output 3.0 L/m. Cardiac index 1.5. Cardiac catheterization revealed left main 50%, LAD 75% diagonal, 90% second diagonal, left circumflex 80%, left circumflex PDA percent. Severe excessive evaluated 0.4 mmHg. Patient with diagnosis severe three-vessel coronary disease , moderate to severe portal hypertension with elevated right left heart pressures and decreased cardiac output. Patient was in go home under hospice/ DNR however wishes for intervention at the present time. Tomorrow, planned discussed possible intervention including possible balloon valvuloplasty. Received 40 mg IV Lasix prior to arrival. Currently on 4 L nasal cannula complaining of some shortness of breath. Subjective: 10/05: No acute events overnight. The patient received 1 dose of IV Lasix 40 mg diuresis greater than 1 L. The patient continues on 4 L nasal cannula without dyspnea at this time. Patient continues on Lasix daily 40 mg. Continue discussions regarding evaluation for possible cardiac surgical intervention,l per Dr. Prince. The patient remains nothing by mouth at this time plans for continued evaluation, including abdominal ultrasound exam today. Objective Vital Signs Date Time Temp Pulse Resp B/P Pulse Ox O2 Delivery O2 Flow Rate FiO2 10/05/16 04:00 102 10/05/16 03:00 97 Nasal Cannula 4.00 10/05/16 03:00 98.0 20 94/56 Result Diagram: 10/05/16 0420 10/05/16 0420 Imaging Last Impressions Chest X-Ray 10/04/16 0000 Signed Impressions: Service Date/Time: Tuesday, October 04, 2016 11:58 - CONCLUSION: Mild basilar edema and small effusions. Elpidio Shea MD Objective Remarks GENERAL: 85-year-old male, critically ill currently resting in bed on nasal cannula, in no acute distress SKIN: Cool and dry. No rash HEAD: Atraumatic. Normocephalic. EYES: Pupils equal and round about 2 mm bilaterally and reactive. No scleral icterus. No injection or drainage. ENT: No nasal bleeding or discharge. Mucous membranes pink and moist. Oropharynx without erythema NECK: Trachea midline. No JVD. CARDIOVASCULAR: Regular rate and rhythm. S1, S2 no S4. 4/6 systolic murmur right upper sternal border RESPIRATORY: Diminished breath sounds in the bases. Symmetrical excursion. No wheezing GASTROINTESTINAL: Abdomen soft, non-tender, nondistended. Active bowel sounds MUSCULOSKELETAL: Extremities with trace lower extremity peripheral edema. No obvious deformities. NEUROLOGICAL: Awake and alert. No obvious cranial nerve deficits. Motor grossly within normal limits. 5/5 muscle strength in the arms and legs. Normal speech. Patient is hard of hearing Procedures 10/05 ultrasound abdomen A/P Assessment and Plan Neuro/Psych: Anxiety Acetaminophen for fever/pain management Limit sedation CV: Severe aortic stenosis Moderate to severe pulmonary hypertension Severe three-vessel coronary disease Dyslipidemia NYHA Class IV Systolic and diastolic heart failure Right Heart catheterization revealed right atrium 22 mmHg, RV pressure 61/14, PAP 60/30, cardiac output 2.0. Cardiac index 1.5. Left heart catheterization revealed left main 50%, LAD 70% 5% percentile, 90% second diagonal, left circumflex 80% proximal, 90% PDA. Severe aortic stenosis valve area 0.49 cm2 Simvastatin 20 mg daily. Pravastatin 40 mg by mouth daily for dyslipidemia Continue furosemide 40 mg by mouth daily Continue aspirin 81 mg by mouth daily Dr. Burns/cardiology CT surgery consulted possible balloon valvuloplasty Resp: Acute respiratory insufficiency Chest x-ray revealed atelectasis/small pleural effusions bilaterally. Nasal cannula to maintain saturations greater than equal to 92% Incentive spirometry while awake GI: Diverticulosis Internal hemorrhoids Elevated transaminases Patient is currently nothing by mouth Pantoprazole for GI prophylaxis Bowel regimen issue with Kita-Colace twice a day Check liver ultrasound/test panel/CPK. Follow-up abdominal ultrasound : Chacko catheter has been placed for accurate I's and O's in a critically ill patient on diuretics F/U urine sodium, urine creatinine Endo: Sliding-scale insulin if indicated to maintain euglycemia/low regimen TSH - normal F/U cortisol levels with low sodium Renal: History of chronic kidney disease unknown staging Crit is currently 1.96. Heme: Monitor CBC INR 1.9 ID: Persistent leukocytosis Monitor for infection F/U urine culture MSK: PT evaluate and treat FEN: Hyponatremia Hyperkalemia-resolved F/U urine/serum osm, TSH, cortisol uric acid. Urine sodium pending. Follow-up on EKG Access - Utilize peripheral IV. 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 Physician Viviana Chaney MD Oct 05, 2016 09:27
[2016-10-05] MEDS: HEPARIN SODIUM - SQ 10,000 UNITS/ML VIAL SQ SCH (09:36)
[2016-10-05] MEDS: SODIUM CHLORIDE 0.9% FLUSH 10 ML FLUSH IV FLUSH SCH (09:38)
--- NOTE | 2016-10-05 10:22 | PD.CARD.PN ---
Subjective Subjective Remarks breathing is slightly improved this am Left hand is "blue". no pain. angelo in place Objective Medications Active Medications Acetaminophen (Tylenol) 650 mg Q6H PRN PO; Start 10/04/16 at 20:00 Acetaminophen/ Hydrocodone Bitart ([place] 5-325 Mg) 1 tab Q4H PRN PO; Start 10/04/16 at 20:00 Aspirin (Ecotrin Ec) 81 mg DAILY PO Last administered on 10/05/16 09:36; Admin Dose 81 MG; Start 10/05/16 at 09:00 Atropine Sulfate 0.5 mg 0.5 mg UNSCH PRN IV; Start 10/04/16 at 14:15 Bacitracin (Bacitracin Oint Packet) 0.9 gm ONCE ONCE TOP; Start 10/04/16 at 14: 15; Stop 10/04/16 at 15:01; Status DC Bisacodyl (Dulcolax Supp) 10 mg DAILY PRN RECTAL; Start 10/04/16 at 20:00 Calcium Gluconate (Calcium Gluconate Inj) 1 gm ONCE ONCE SLOW IVP; Start at 20:15; Stop 10/04/16 at 20:16; Status UNV Calcium Gluconate/ Sodium Chloride (Calcium Gluconate Inj/NS Inj) 110 ml @ 110 mls/hr ONCE ONCE IV Last administered on 10/04/16 20:48; Admin Dose 110 MLS/HR ; Start 10/04/16 at 20:30; Stop 10/04/16 at 21:29; Status DC Chlorhexidine Gluconate (Chlorhexidine 2% Cloth) 3 pack UNSCH PRN TOP; Start at 20:00 Chlorhexidine Gluconate (Chlorhexidine 2% Cloth) 3 pack Taper DAILY@04 TOP; Start 10/05/16 at 04:00; Stop 10/01/17 at 03:59 Cholecalciferol (Vitamin D3) 2,000 units DAILY PO Last administered on 10/05/16 09:37; Admin Dose 2,000 UNITS; Start 10/05/16 at 09:00 Dextrose (D50w (Syr) Inj) 50 ml ONCE ONCE IV Last administered on 10/04/16 20: 48; Admin Dose 50 ML; Start 10/04/16 at 20:45; Stop 10/04/16 at 20:46; Status DC Dextrose (D50w (Vial) Inj) 50 ml ONCE ONCE IV PUSH; Start 10/04/16 at 20:15; Stop 10/04/16 at 20:16; Status DC Fentanyl Citrate (fentaNYL INJ) 100 mcg STK-MED ONCE .ROUTE Last administered on 10/04/16 12:56; Admin Dose 100 MCG; Start 10/04/16 at 12:40; Stop 10/04/16 at 12:41; Status DC Furosemide (Lasix Inj) 40 mg ONCE ONCE IV PUSH Last administered on 10/04/16 16 :45; Admin Dose 40 MG; Start 10/04/16 at 16:45; Stop 10/04/16 at 16:46; Status DC Furosemide (Lasix Inj) 40 mg ONCE ONCE IV PUSH Last administered on 10/05/16 09 :36; Admin Dose 40 MG; Start 10/05/16 at 07:00; Stop 10/05/16 at 07:01; Status DC Furosemide (Lasix) 40 mg DAILY PO; Start 10/05/16 at 09:00 Heparin Sodium (Porcine) (Heparin Inj) 5,000 units Q12H SQ Last administered on 10/05/16 09:36; Admin Dose 5,000 UNITS; Start 10/04/16 at 20:00 Heparin Sodium/ Sodium Chloride (Heparin-NS/Pf Inj) 500 ml @ As Directed STK- MED ONCE .ROUTE Last administered on 10/04/16 12:39; Admin Dose 0 MLS/HR; Start 10/04/16 at 12:39; Stop 10/04/16 at 12:40; Status DC Insulin Human Regular (NovoLIN R INJ) 10 units ONCE ONCE IV PUSH Last administered on 10/04/16 20:50; Admin Dose 10 UNITS; Start 10/04/16 at 20:15; Stop 10/04/16 at 20:16; Status DC Iohexol (OMNIPAQUE 350 INJ (Bore Miner Operator)) 50 ml STK-MED ONCE OTHER; Start 10/04/16 at 12:27; Stop 10/04/16 at 16:08; Status DC Lactulose (Lactulose Liq) 30 ml DAILY PRN PO; Start 10/04/16 at 20:00 Lidocaine HCl (Xylocaine 1% Inj (50 ml)) 10 ml UNSCH PRN INFIL; Start 10/04/16 at 14:15; Stop 10/05/16 at 14:14 Lorazepam (Ativan Inj) 0.5 mg UNSCH PRN IV; Start 10/04/16 at 14:15; Stop at 14:14 Lorazepam (Ativan Inj) 1 mg Q2H PRN IM Last administered on 10/04/16 14:00; Admin Dose 1 MG; Start 10/04/16 at 14:15 Magnesium Hydroxide (Milk Of Magnesia Liq) 30 ml Q12H PRN PO; Start 10/04/16 at 20:00 Metoclopramide HCl (Reglan Inj) 10 mg Q4H PRN IV; Start 10/04/16 at 14:15 Midazolam HCl (Versed Inj) 2 mg STK-MED ONCE .ROUTE Last administered on 12:57; Admin Dose 2 MG; Start 10/04/16 at 12:40; Stop 10/04/16 at 12:41; Status DC Miscellaneous Information 1 ONCE ONCE XX; Start 10/04/16 at 14:15; Stop 10/04/16 at 15:01; Status DC Miscellaneous Information 1 [id number] Last administered on 10/04/16 20:00; Admin Dose 1; Start 10/04/16 at 20:00 Morphine Sulfate (Morphine Inj) 2 mg Q2H PRN IV; Start 10/04/16 at 20:00 Morphine Sulfate (Morphine Inj) 2 mg Q3H PRN IV PUSH; Start 10/04/16 at 14:15; Stop 10/04/16 at 20:15; Status DC Ondansetron HCl (Zofran Inj) 4 mg Q4H PRN IV; Start 10/04/16 at 14:15; Stop 10/04 at 20:06; Status DC Ondansetron HCl (Zofran Inj) 4 mg Q6H PRN IV; Start 10/04/16 at 20:00 Pantoprazole Sodium (Protonix Inj) 40 mg DAILY IV Last administered on 10/05/16 09:38; Admin Dose 40 MG; Start 10/05/16 at 09:00 Pravastatin Sodium (Pravachol) 40 mg DAILY PO; Start 10/05/16 at 09:00; Stop 10/05 at 09:38; Status DC Senna/Docusate Sodium (Kita-Colace) 1 tab BID PO Last administered on 10/04/16 20:48; Admin Dose 1 TAB; Start 10/04/16 at 21:00 Sennosides (Senokot) 17.2 mg Q12H PRN PO; Start 10/04/16 at 20:00 Sodium Polystyrene Sulfonate 15 gm 15 gm ONCE ONCE PO Last administered on 20:47; Admin Dose 15 GM; Start 10/04/16 at 20:15; Stop 10/04/16 at 20:16; Status DC Sodium Bicarbonate (Sodium Bicarbonate 8.4% Inj) 50 meq ONCE ONCE SLOW IVP Last administered on 10/04/16 20:15; Admin Dose 50 MEQ; Start 10/04/16 at 20:15; Stop 10/04/16 at 20:16; Status DC Sodium Chloride 1,000 ml @ 30 mls/hr Q24H IV; Start 10/04/16 at 10:15 Sodium Chloride (NS 250 ml Inj) 250 ml @ 500 mls/hr ONCE PRN IV; Start at 14:15; Stop 10/05/16 at 14:14 Sodium Chloride (NS Flush) 2 ml BID IV FLUSH Last administered on 10/05/16 09:38 ; Admin Dose 2 ML; Start 10/04/16 at 21:00 Sodium Chloride (NS Flush) 2 ml UNSCH PRN IV FLUSH; Start 10/04/16 at 20:00 Vital Signs / I&O Vital Signs Date Time Temp Pulse Resp B/P Pulse Ox O2 Delivery O2 Flow Rate FiO2 10/05/16 04:00 102 10/05/16 03:00 97 Nasal Cannula 4.00 10/05/16 03:00 98.0 102 20 94/56 97 10/05/16 00:00 105 10/04/16 23:00 99 Nasal Cannula 4.00 10/04/16 23:00 97.5 109 20 104/63 99 10/04/16 22:29 97 Nasal Cannula 4.00 10/04/16 20:00 97.3 103 20 98/60 97 10/04/16 20:00 103 10/04/16 20:00 97 Nasal Cannula 4.00 10/04/16 14:07 98 Room Air 10/04/16 10:24 96.9 98 16 110/69 94 I/O 10/04/16 10/04/16 10/04/16 10/05/16 10/05/16 10/05/16 06:59 14:59 22:59 06:59 14:59 22:59 Intake Total 440 ml Output Total 1140 ml Balance -700 ml Intake Oral 240 ml IV Total 200 ml Output Urine Total 1140 ml # Bowel Movements 0 Physical Exam HEAD: Normocephalic. EYES: No scleral icterus. NECK: JVD elevated CARDIOVASCULAR: Regular rate and rhythm 4/6 SM RESPIRATORY: Breath sounds equal bilaterally. crackles at bases. decreased BS GASTROINTESTINAL: Abdomen soft MUSCULOSKELETAL: + left hand cyanosis. edema. doppler pulses BLE. BACK: Nontender without obvious deformity. No CVA tenderness. Laboratory Laboratory Tests Test 10/04/16 10/04/16 10/04/16 10/04/16 10:15 14:00 22:36 23:32 Blood Type A POSITIVE Antibody Screen NEGATIVE Blood Bank Comment Sodium Level 120 MEQ/L Potassium Level 5.6 MEQ/L 5.1 MEQ/L Chloride Level 88 MEQ/L Carbon Dioxide Level 17.4 MEQ/L Anion Gap 15 MEQ/L Blood Urea Nitrogen 52 MG/DL Creatinine 1.96 MG/DL Estimat Glomerular Filtration 33 ML/MIN Rate Random Glucose 118 MG/DL Hemoglobin A1c 5.8 % Calcium Level 7.9 MG/DL Total Bilirubin 1.8 MG/DL Aspartate Amino Transf 552 U/L (AST/SGOT) Alanine Aminotransferase 717 U/L (ALT/SGPT) Alkaline Phosphatase 104 U/L Total Protein 5.9 GM/DL Albumin 3.4 GM/DL Urine Color YELLOW Urine Turbidity HAZY Urine pH 5.5 Urine Specific [place] 1.027 Urine Protein 30 mg/dL Urine Glucose (UA) NEG mg/dL Urine Ketones NEG mg/dL Urine Occult Blood LARGE Urine Nitrite NEG Urine Bilirubin NEG Urine Urobilinogen LESS THAN 2.0 MG/DL Urine Leukocyte Esterase LARGE Urine RBC /hpf Urine WBC /hpf Urine WBC Clumps MANY Urine Bacteria MANY /hpf Microscopic Urinalysis Comment CULTURE INDICATED White Blood Count 18.4 TH/MM3 Red Blood Count 4.19 MIL/MM3 Hemoglobin 13.0 GM/DL Hematocrit 39.0 % Mean Corpuscular Volume 93.2 FL Mean Corpuscular Hemoglobin 31.0 PG Mean Corpuscular Hemoglobin 33.3 % Concent Red Cell Distribution Width 13.8 % Platelet Count 168 TH/MM3 Mean Platelet Volume 9.1 FL Ammonia 27 MCMOL/L Serum Osmolality 287 MOSM/KG Uric Acid 12.1 MG/DL Total Creatine Kinase 689 U/L Creatine Kinase MB 16.4 NG/ML Creatine Kinase MB % 2.4 % Thyroid Stimulating Hormone 1.370 uIU/ML 3rd Gen Test 10/05/16 10/05/16 00:35 04:20 Nasal Screen MRSA (PCR) MRSA NOT DETECTED White Blood Count 19.5 TH/MM3 Red Blood Count 4.36 MIL/MM3 Hemoglobin 13.5 GM/DL Hematocrit 40.7 % Mean Corpuscular Volume 93.4 FL Mean Corpuscular Hemoglobin 30.9 PG Mean Corpuscular Hemoglobin 33.0 % Concent Red Cell Distribution Width 13.7 % Platelet Count 158 TH/MM3 Mean Platelet Volume 9.0 FL Neutrophils (%) (Auto) 86.6 % Lymphocytes (%) (Auto) 4.6 % Monocytes (%) (Auto) 8.4 % Eosinophils (%) (Auto) 0.1 % Basophils (%) (Auto) 0.3 % Neutrophils # (Auto) 16.9 TH/MM3 Lymphocytes # (Auto) 0.9 TH/MM3 Monocytes # (Auto) 1.6 TH/MM3 Eosinophils # (Auto) 0.0 TH/MM3 Basophils # (Auto) 0.1 TH/MM3 CBC Comment AUTO DIFF Differential Total Cells 100 Counted Neutrophils % (Manual) 87 % Band Neutrophils % 3 % Lymphocytes % 3 % Monocytes % 6 % Neutrophils # (Manual) 17.7 TH/MM3 Metamyelocytes 1 % Nucleated Red Blood Cells 2 /100 WBC Differential Comment FINAL DIFF MANUAL Platelet Estimate NORMAL Platelet Morphology Comment NORMAL Polychromasia 3.5 % [place] Bodies PRESENT Prothrombin Time 21.4 SEC Prothromb Time International 1.9 RATIO Ratio Activated Partial 29.2 SEC Thromboplast Time Sodium Level 126 MEQ/L Potassium Level 4.9 MEQ/L Chloride Level 89 MEQ/L Carbon Dioxide Level 20.8 MEQ/L Anion Gap 16 MEQ/L Blood Urea Nitrogen 58 MG/DL Creatinine 1.99 MG/DL Random Glucose 125 MG/DL Calcium Level 8.2 MG/DL Phosphorus Level 5.0 MG/DL Magnesium Level 3.0 MG/DL Total Bilirubin 2.0 MG/DL Aspartate Amino Transf 1005 U/L (AST/SGOT) Alanine Aminotransferase 1262 U/L (ALT/SGPT) Alkaline Phosphatase 102 U/L Total Protein 6.3 GM/DL Albumin 3.4 GM/DL Imaging Last Impressions Chest X-Ray 10/04/16 0000 Signed Impressions: Service Date/Time: Tuesday, October 04, 2016 11:58 - CONCLUSION: Mild basilar edema and small effusions. Elpidio Shea MD Assessment and Plan Assessment and Plan severe aortic stenosis - surgical operative mortality and morbidity is very high and prohibitive to surgical intervention. Options are limited. TAVR is a consideration, but he would need coronary revascularization prior to induced ventricular tachycardiac pacing required for TAVR. His coronary anatomy would require LM, LAD, and RCA intervention likely with atherectomy and Impella left ventricular assist support, which is a major issue with his . We discussed his case in depth with the TAVR team and family/patient. We may be able to offer temporary improvement with consideration of aortic balloon valvuloplasty to see if he can make some clinical recovery. If so, we could consider high risk PCI. If no meaningful improvement, family would be agreeable to hospice. ARF - Cr 1.1 ->2.0. too quick for contrast nephropathy and minimal contrast given. Na 133 -> 120 -> 126. will consult neprhology. One episode hypotension yesterday ?shock kidney. continue angelo. hold diuretic. transaminase elevation/coagulopathy - passive congestion vs shock liver vs intrinsic process. DC statin. consult gastroenterology tentatively to discuss aortic balloon valvuloplasty tomorrow. Reid Burns MD Oct 05, 2016 10:21
--- NOTE | 2016-10-05 11:56 | RADRPT ---
EXAM DATE/TIME: 10/05/2016 10:59 [facility] COMPARISON: No previous studies available for comparison. INDICATIONS : Left arm swelling. MEDICAL HISTORY : Congestive heart failure. Dyspnea. Chronic kidney disease. Coronary artery disease. Skin cancer. Dive rticulitis. Severe aortic stenosis. SURGICAL HISTORY : Bilateral inguinal hernia repair. Skin cancer removal. ENCOUNTER: Initial ACUITY: 1 day PAIN SCORE: 2/10 LOCATION: Left arm. FINDINGS: There is evidence of occlusive thrombus in the brachial and basilic veins. There is also occlusive th rombus in the cephalic vein proximal to the an acute fossa. There is good flow demonstrated in the le ft jugular vein, left subclavian and axillary veins. CONCLUSION: There is occlusive thrombus in the basilic and brachial veins in the arm. There is also superficial t hrombus in the cephalic vein proximal to the antecubital fossa. Akin South MD on October 05, 2016 at 11:53 Board Certified Radiologist. This report was verified electronically.
--- NOTE | 2016-10-05 12:19 | RADRPT ---
EXAM DATE/TIME: 10/05/2016 09:49 [facility] COMPARISON: No previous studies available for comparison. INDICATIONS : Catheter placement. MEDICAL HISTORY : Congestive heart failure. Dyspnea. Chronic kidney disease. Coronary artery disease. Skin cancer. Dive rticulitis. Severe aortic stenosis. SURGICAL HISTORY : Bilateral inguinal hernia repair. Skin cancer removal. ENCOUNTER: Initial ACUITY: 1 day PAIN SCORE: 2/10 LOCATION: Bilateral legs. PEAK SYSTOLIC VELOCITIES (cm/sec): EXTERNAL ILIAC ARTERY: Right: 57 Left: 53 MAIL CLERK: Right: 53 Left: 109 SUPERFICIAL FEMORAL ARTERY PROXIMAL: Right: 90 Left: 74 SUPERFICIAL FEMORAL ARTERY MID: Right: 69 Left: 83 SUPERFICIAL FEMORAL ARTERY DISTAL: Right: 42 Left: 69 PROFUNDA FEMORAL ARTERY: Right:32 Left:59 FINDINGS: Mild atherosclerotic changes are noted in the femoral vessels. No evidence of significant stenosis or occlusion involving the vessels evaluated.. CONCLUSION: 1. Mild atherosclerotic changes are noted in the femoral vessels. 2. No evidence of significant stenosis or occlusion from the iliac arteries down through the SFA Akin South MD on October 05, 2016 at 12:06 Board Certified Radiologist. This report was verified electronically.
--- NOTE | 2016-10-05 12:20 | RADRPT ---
EXAM DATE/TIME: 10/05/2016 11:23 [facility] COMPARISON: No previous studies available for comparison. INDICATIONS : Poor perfusion in left arm. MEDICAL HISTORY : Congestive heart failure. Dyspnea. Chronic kidney disease. Coronary artery disease. Skin cancer. Dive rticulitis. Severe aortic stenosis. SURGICAL HISTORY : Bilateral inguinal hernia repair. Skin cancer removal. ENCOUNTER: Initial ACUITY: 1 day PAIN SCORE: 2/10 LOCATION: Left arm. PEAK SYSTOLIC VELOCITIES (cm/sec): INNOMINATE ARTERY: Left: 87 cm/sec SUBCLAVIAN ARTERY: Left: 59 cm/sec AXILLARY ARTERY: Left: 36 cm/sec BRACHIAL ARTERY: Left: 91 cm/sec RADIAL ARTERY: Left: 79 cm/sec ULNAR ARTERY: Left:49 cm/sec FINDINGS: The arterial vessels of the left arm are patent. CONCLUSION: The arterial vessels of the left arm appear to be patent. Akin South MD on October 05, 2016 at 12:18 Board Certified Radiologist. This report was verified electronically.
--- NOTE | 2016-10-05 12:52 | PD.CONS ---
HPI History of Present Illness This is a 85 year old male with severe aortic valve stenosis, who started having shortness of breath with exertion about 3 months ago. Prior to that, he was ambulating 2 miles a day. This has been progressively worsening over the past month with significant worsening on . His tried to get him to come to the ER at that time, but he refused. He also has chronic constipation since childhood and takes stool softeners and laxatives as needed. His reports that over the weekend, he was very constipated and required stool softeners, MOM, enemas, and disimpaction. During this time, he had decreased appetite, nausea with vomiting (no hematemesis), and bloating. He did have a bowel movement after the enema and disimpaction and had 3 bowel movements on Tuesday. He was not having any fevers or chills at that time. He denies any melena or hematochezia. He was recently seen by Dr. Burns for symptomatic severe aortic stenosis and decreased ejection fraction and the plan was for him to have a left and right heart catheterization, then CVT evaluation for TAVR vs. surgical AVR candidacy. He came to the ER yesterday to have this done. He underwent Right/Left heart catheterization (10/04/16) and this revealed likely severe aortic stenosis with slightly reduced mean gradient secondary to cardiomyopathy, aortic valve area is critical with a moderate mean gradient, severe three-vessel left main coronary artery disease, moderate to severe pulmonary hypertension, elevated left and right sided filling pressures, reduced cardiac output and index. Per cardiology's note, surgical operative mortality and morbidity is very high and prohibitive to surgical intervention and they are considering TAVR, but state he would need coronary revascularization prior to induced ventricular tachycardiac pacing required for TAVR. They are also considering aortic balloon valvuloplasty to see if he can make some clinical recovery and the family would be agreeable to hospice if no recovery. Afterwards, he was admitted to the cardiac intensive care unit with shortness of breath, leukocytosis, elevated LFTs, acute kidney injury, and coagulopathy. Outpatient records show that on 06/16/16 revealed T. Bili 0.6, AST 17, ALT 12, Alk Phosph 59. On admission, these were noted to be T. Bilirubin 1.8, AST 552, ALT 717, Alk Phosph 104. Today, these are T. Bili 2.0, AST 1005, ALT 1262, Alk Phosph 102. Platelets 158. PT 21.4, INR 1.9. Liver US was ordered and GI has been consulted for further evaluation and treatment. The patient and his deny any known history of liver disease in himself or family members. He has never been a heavy drinker and does not drink ETOH at this time. He denies any history of gallbladder issues and states he has not had any food intolerances or problems with nausea/vomiting until this weekend and that it was related more to his constipation. He has not had fevers/ chills. He does have high cholesterol and takes a statin, but has been on this for several years. The patient and his state that they are hoping to try the balloon valvuloplasty, but otherwise are not wanting any extensive testing or invasive procedures and feel like if he cannot have the valvuloplasty done or if he does not do well with this, they would elect hospice at that time. ( Niharika Hayden) PFSH Past Medical History Severe aortic valve stenosis Coronary artery disease Pulmonary hypertension Chronic kidney disease Diverticulosis Hemorrhoids Hyperlipidemia Insomnia Vitamin D deficiency Past Surgical History Colonoscopy 2 Hernia repair (Niharika Hayden) Coded Allergies: No Known Allergies (Unverified , 10/04/16) Medications Allergies Coded Allergies Type Severity Reaction Last Updated Verified No Known Allergies 10/04/16 No Active Scripts Medications Dose Route/Sig Days Date Category Vitamin D3 (Cholecalciferol) 2,000 Unit Cap 2,000 Units PO DAILY 10/04/16 Reported Simvastatin 20 Mg Tab 20 Mg PO DAILY 10/04/16 Reported K-Tab (Potassium Chloride) 10 Meq Tab 10 Meq PO BID 10/04/16 Reported Lasix (Furosemide) 40 Mg Tab 40 Mg PO DAILY 10/04/16 Reported Aspirin EC (Aspirin) 81 Mg Tabdr 81 Mg PO DAILY 10/04/16 Reported Family History Father had heart disease from an MT at age 55 Social History Never smoker, no alcohol use, no illicit drug use (Niharika Hayden) Review of Systems Constitutional: COMPLAINS OF: Diaphoretic episodes, Fatigue, Change in appetite Ears, nose, mouth, throat: DENIES: Hearing loss Respiratory: COMPLAINS OF: Cough, Shortness of breath Cardiovascular: COMPLAINS OF: Lower Extremity Edema Gastrointestinal: COMPLAINS OF: Constipation, Nausea, Vomiting, Swelling of Abdomen, DENIES: Abdominal pain, Black stools, Bloody stools, Diarrhea, Heartburn, Hematemesis Integumentary: COMPLAINS OF: Abnormal pigmentation Hematologic/lymphatic: DENIES: Bruising Neurologic: DENIES: Headache Psychiatric: DENIES: Confusion (Niharika Hayden) GI Exam Vitals I&O Vital Signs Date Time Temp Pulse Resp B/P Pulse Ox O2 Delivery O2 Flow Rate FiO2 10/05/16 07:00 97.6 105 20 100/58 98 10/05/16 04:00 102 10/05/16 03:00 97 Nasal Cannula 4.00 10/05/16 03:00 98.0 102 20 94/56 97 10/05/16 00:00 105 10/04/16 23:00 99 Nasal Cannula 4.00 10/04/16 23:00 97.5 109 20 104/63 99 10/04/16 22:29 97 Nasal Cannula 4.00 10/04/16 20:00 97.3 103 20 98/60 97 10/04/16 20:00 103 10/04/16 20:00 97 Nasal Cannula 4.00 10/04/16 14:07 98 Room Air I/O 10/04/16 10/04/16 10/04/16 10/05/16 10/05/16 10/05/16 07:00 15:00 23:00 07:00 15:00 23:00 Intake Total 440 ml Output Total 1140 ml Balance -700 ml Intake Oral 240 ml IV Total 200 ml Output Urine Total 1140 ml # Bowel Movements 0 Imaging Last Impressions Upper Extremity Ultrasound 10/05/16 0000 Signed Impressions: Service Date/Time: Wednesday, October 05, 2016 10:59 - CONCLUSION: There is occlusive thrombus in the basilic and brachial veins in the arm. There is also superficial thrombus in the cephalic vein proximal to the antecubital fossa. Akin South MD Chest X-Ray 10/04/16 0000 Signed Impressions: Service Date/Time: Tuesday, October 04, 2016 11:58 - CONCLUSION: Mild basilar edema and small effusions. Elpidio Shea MD Laboratory Test 10/04/16 10/04/16 10/04/16 10/05/16 14:00 22:36 23:32 00:35 Sodium Level 120 MEQ/L Potassium Level 5.6 MEQ/L 5.1 MEQ/L Chloride Level 88 MEQ/L Carbon Dioxide Level 17.4 MEQ/L Anion Gap 15 MEQ/L Blood Urea Nitrogen 52 MG/DL Creatinine 1.96 MG/DL Estimat Glomerular Filtration 33 ML/MIN Rate Random Glucose 118 MG/DL Hemoglobin A1c 5.8 % Calcium Level 7.9 MG/DL Total Bilirubin 1.8 MG/DL Aspartate Amino Transf 552 U/L (AST/SGOT) Alanine Aminotransferase 717 U/L (ALT/SGPT) Alkaline Phosphatase 104 U/L Total Protein 5.9 GM/DL Albumin 3.4 GM/DL Urine Color YELLOW Urine Turbidity HAZY Urine pH 5.5 Urine Specific [place] 1.027 Urine Protein 30 mg/dL Urine Glucose (UA) NEG mg/dL Urine Ketones NEG mg/dL Urine Occult Blood LARGE Urine Nitrite NEG Urine Bilirubin NEG Urine Urobilinogen LESS THAN 2.0 MG/DL Urine Leukocyte Esterase LARGE Urine RBC /hpf Urine WBC /hpf Urine WBC Clumps MANY Urine Bacteria MANY /hpf Microscopic Urinalysis Comment CULTURE INDICATED White Blood Count 18.4 TH/MM3 Red Blood Count 4.19 MIL/MM3 Hemoglobin 13.0 GM/DL Hematocrit 39.0 % Mean Corpuscular Volume 93.2 FL Mean Corpuscular Hemoglobin 31.0 PG Mean Corpuscular Hemoglobin 33.3 % Concent Red Cell Distribution Width 13.8 % Platelet Count 168 TH/MM3 Mean Platelet Volume 9.1 FL Ammonia 27 MCMOL/L Serum Osmolality 287 MOSM/KG Uric Acid 12.1 MG/DL Total Creatine Kinase 689 U/L Creatine Kinase MB 16.4 NG/ML Creatine Kinase MB % 2.4 % Thyroid Stimulating Hormone 1.370 uIU/ML 3rd Gen Nasal Screen MRSA (PCR) MRSA NOT DETECTED Test 10/05/16 04:20 White Blood Count 19.5 TH/MM3 Red Blood Count 4.36 MIL/MM3 Hemoglobin 13.5 GM/DL Hematocrit 40.7 % Mean Corpuscular Volume 93.4 FL Mean Corpuscular Hemoglobin 30.9 PG Mean Corpuscular Hemoglobin 33.0 % Concent Red Cell Distribution Width 13.7 % Platelet Count 158 TH/MM3 Mean Platelet Volume 9.0 FL Neutrophils (%) (Auto) 86.6 % Lymphocytes (%) (Auto) 4.6 % Monocytes (%) (Auto) 8.4 % Eosinophils (%) (Auto) 0.1 % Basophils (%) (Auto) 0.3 % Neutrophils # (Auto) 16.9 TH/MM3 Lymphocytes # (Auto) 0.9 TH/MM3 Monocytes # (Auto) 1.6 TH/MM3 Eosinophils # (Auto) 0.0 TH/MM3 Basophils # (Auto) 0.1 TH/MM3 CBC Comment AUTO DIFF Differential Total Cells 100 Counted Neutrophils % (Manual) 87 % Band Neutrophils % 3 % Lymphocytes % 3 % Monocytes % 6 % Neutrophils # (Manual) 17.7 TH/MM3 Metamyelocytes 1 % Nucleated Red Blood Cells 2 /100 WBC Differential Comment FINAL DIFF MANUAL Platelet Estimate NORMAL Platelet Morphology Comment NORMAL Polychromasia 3.5 % [place] Bodies PRESENT Prothrombin Time 21.4 SEC Prothromb Time International 1.9 RATIO Ratio Activated Partial 29.2 SEC Thromboplast Time Sodium Level 126 MEQ/L Potassium Level 4.9 MEQ/L Chloride Level 89 MEQ/L Carbon Dioxide Level 20.8 MEQ/L Anion Gap 16 MEQ/L Blood Urea Nitrogen 58 MG/DL Creatinine 1.99 MG/DL Random Glucose 125 MG/DL Calcium Level 8.2 MG/DL Phosphorus Level 5.0 MG/DL Magnesium Level 3.0 MG/DL Total Bilirubin 2.0 MG/DL Aspartate Amino Transf 1005 U/L (AST/SGOT) Alanine Aminotransferase 1262 U/L (ALT/SGPT) Alkaline Phosphatase 102 U/L Total Protein 6.3 GM/DL Albumin 3.4 GM/DL Date/Time Procedure Status Source Growth 10/04/16 22:36 Urine Culture Received Urine Clean Catch Pending 10/04/16 22:36 Cancelled Nasopharyngeal Physical Examination HEENT: Normocephalic; atraumatic; no jaundice. CHEST: Resp shallow/mildly labored, crackles in bases CARDIAC: Tachycardic mildly ABDOMEN: Soft, nondistended, NONtender; no hepatosplenomegaly; bowel sounds are present in all four quadrants. EXTREMITIES: Left hand discolored/purple, cool to touch. Palpable radial pulse. Trace bilateral edema DETACHER: No focal deficits; alert and oriented times three. (Niharika Hayden) Assessment and Plan Plan ASSESSMENT: - Elevated LFTs, likely shocked liver, possibly on underlying hepatic congestion. Denies any history of liver dz in self or family members. No ETOH. He denies any history of gallbladder issues and states he has not had any food intolerances or problems with nausea/vomiting until this weekend and that it was related more to his constipation. He has not had fevers/ chills. He does have high cholesterol and takes a statin, but has been on this for several years. Outpatient records show that on 06/16/16 revealed T. Bili 0.6, AST 17, ALT 12, Alk Phosph 59. Today, these are T. Bili 2.0, AST 1005, ALT 1262, Alk Phosph 102. Platelets 158. PT 21.4, INR 1.9. Liver US pending. The patient and his state that they are hoping to try the balloon valvuloplasty, but otherwise are not wanting any extensive testing or invasive procedures and feel like if he cannot have the valvuloplasty done or if he does not do well with this, they would elect hospice at that time. Await US, order liver workup. Suspect shocked liver with likely underlying hepatic congestion, but cannot completely rule out other underlying liver dz and will check liver workup. Also with leukocytosis, did not have any RUQ tenderness, but will also need to r/o acute cholecystitis- although alk phosph normal and the pattern is more consistent with shocked liver. - N/V, Constipation. Had severe constipation/impaction over the weekend with associated n/v/decreased appetite. S/P stool softeners, MOM, enema, disimpaction. BM x 2 on Tuesday. - Severe aortic stenosis, CAD, Pulmonary htn. Right/Left heart catheterization (10/04/16) and this revealed likely severe aortic stenosis with slightly reduced mean gradient secondary to cardiomyopathy, aortic valve area is critical with a moderate mean gradient, severe three-vessel left main coronary artery disease, moderate to severe pulmonary hypertension, elevated left and right sided filling pressures, reduced cardiac output and index. Per cardiology's note, surgical operative mortality and morbidity is very high and prohibitive to surgical intervention and they are considering TAVR, but state he would need coronary revascularization prior to induced ventricular tachycardiac pacing required for TAVR. They are also considering aortic balloon valvuloplasty to see if he can make some clinical recovery and the family would be agreeable to hospice if no recovery. - Acute on chronic kidney disease with electrolyte abnormalities. Na 126, K+ 4.9. Renal consulted. Creat 1.99. - Left hand discoloration, cool to touch. Palpable radial pulse. S/P arterial US, upper extremity doppler. Per CCM. - Resp. insufficiency. 3.5 L via n/c. - Leukocytosis. WBC 19.5. Urine cx pending. PLAN: - NPO for now - Await US - Hepatitis profile - AFP level - DEBRA, ASMA, AMA - Ferritin, Iron saturation - Ceruloplasmin, ALpha 1 antitrypsin - Statin on hold - Follow coag's - Monitor LFTs - Avoid hypotension - Avoid hepatotoxins - Further recommendations to follow based on results of above - Pt high risk for procedures at this time secondary to hepatocellular injury, coagulopathy, MEGAN. - Pt seen and examined by Dr. Brennan and myself and this note is written on his behalf (Niharika Hayden) Plan Pt has no abdominal pain. He has elevated LFTs probably due to CHF/shock liver/ congestion but additional testing would be needed overseveral days to adequately define the liver issues. Most likely the liver is an innocent bystander of poor cardiovasscular function due to his and CHF. I do not believe the liver condition would increase his overall risk for his cardiac procedure and I would not recommend delaying or deferring cardiac intervention because of his liver issue at present. If cardiac function can be optimized, liver function should also improve. I have discussed this recommendation with his anvilsmith at the time of the visit. (Robson Brennan MD) Niharika Hayden Oct 05, 2016 12:52 Robson Brennan MD Oct 05, 2016 15:09
--- NOTE | 2016-10-05 12:55 | RADRPT ---
EXAM DATE/TIME: 10/05/2016 10:13 [facility] COMPARISON: CHEST SINGLE AP, October 04, 2016, 11:58. INDICATIONS : Abnormal labs. MEDICAL HISTORY : Congestive heart failure. Dyspnea. Chronic kidney disease. Coronary artery disease. Skin cancer. Dive rticulitis. Severe aortic stenosis. SURGICAL HISTORY : Bilateral inguinal hernia repair. Skin cancer removal. ENCOUNTER: Initial ACUITY: 1 day PAIN SCORE: 2/10 LOCATION: Abdomen. MEASUREMENTS: 17.4 cm length COMMON DUCT: Non-visualized RIGHT KIDNEY: 9.3 x 4.9 x 4.4 cm LEFT KIDNEY: 10.7 x 5.1 x 5.1 cm SPLEEN: 7.0 cm length AORTA: 2.1cm maximal FINDINGS: LIVER: Normal echotexture without focal lesion or ductal dilatation. There is a hepatic cyst in the left lob e measuring 2.2 cm. No definite flow is demonstrated in the main portal vein. COMMON DUCT: No intraluminal mass or stone visualized. GALLBLADDER: No definite gallstones are seen. There is some thickening of the gallbladder wall to 9 mm. There may be a trace of fluid around the gallbladder. PANCREAS: The visualized portions are within normal limits. The pancreatic duct is mildly dilated 3 mm. RIGHT KIDNEY: No hydronephrosis, stone or mass. There is a cyst along the upper pulmonary vein 1.9 cm. LEFT KIDNEY: No hydronephrosis, stone or mass. SPLEEN: No focal lesion. AORTA: Non aneurysmal. IVC: Within normal limits. There appears to be Bilateral effusions. CONCLUSION: 1. 2.2 cm hepatic cyst in left lobe of the liver. 2. The main portal vein does not appear to have flow on Doppler examination. If clinically indicated, recommend a CT scan of the abdomen with IV contrast for further evaluation.. 3. No evidence of gallstones. However, there is evidence of chronic gallbladder disease with thickeni ng of the gallbladder wall with thickening at 9 mm as well as a small amount of keke-cholecystic flui d 4. The pancreatic duct is mildly dilated at 3 mm. 5. Small benign-appearing right renal cyst measuring 1.9 cm. Akin South MD on October 05, 2016 at 12:48 Board Certified Radiologist. This report was verified electronically.
[2016-10-05] MEDS ORDERED: HEPARIN 25,000 UNITS-D5W 250 ML - PREMIX IV SCH (14:45)
--- NOTE | 2016-10-05 15:03 | EKG ---
Date Performed: 10/05/2016 Time Performed: 06:11:26 PTAGE: 85 years EKG: Sinus tachycardia with PAC(s) Possible anteroseptal infarct - age undetermined Inferior/lat eral ST-T changes may be due to myocardial ischemia Abnormal ECG PREVIOUS TRACING : 10/04/2016 20.11 DOCTOR: Connie Croft Interpretating Date/Time 10/05/2016 14:57:27
[2016-10-05] MEDS: MORPHINE SULFATE 4 MG/ML INJ IV PRN ×2 (15:18→17:18)
--- NOTE | 2016-10-05 15:39 | EKG ---
Date Performed: 10/04/2016 Time Performed: 20:11:24 PTAGE: 85 years EKG: Sinus tachycardia with borderline 1st degree A-V block Possible anterior infarct - age unde termined Inferior/lateral ST-T changes may be due to myocardial ischemia Abnormal ECG NO PREVIOUS TRACING DOCTOR: Connie Croft Interpretating Date/Time 10/05/2016 15:37:13
== END 2016-10-05 19:15 | disposition hospice, home (50) | DRG 286 ==
LOC: HCAT 09:51 → HDIC 09:51 → HCAT 17:20 → HCVR 17:21
PROVIDERS: ADMIT Internal Medicine; ATTEND Internal Medicine
PROC: B2111ZZ Fluoroscopy of Multiple Coronary Arteries using Low Osmolar Contrast (ICD-10-PCS; 2016-10-04)
PROC: 4A023N8 Measurement of Cardiac Sampling and Pressure, Bilateral, Percutaneous Approach (ICD-10-PCS; principal; 2016-10-04 12:30)
DX: I35.0 Nonrheumatic aortic (valve) stenosis (principal); K72.00 Acute and subacute hepatic failure without coma; N17.9 Acute kidney failure, unspecified; I42.9 Cardiomyopathy, unspecified; D68.9 Coagulation defect, unspecified; R06.89 Other abnormalities of breathing; I50.40 Unspecified combined systolic (congestive) and diastolic (congestive) heart failure; I13.0 Hypertensive heart and chronic kidney disease with heart failure and stage 1 through stage 4 chronic kidney disease, or unspecified chronic kidney disease; N18.3 Chronic kidney disease, stage 3 (moderate); E87.1 Hypo-osmolality and hyponatremia; J98.11 Atelectasis; I27.2 Other secondary pulmonary hypertension; E78.5 Hyperlipidemia, unspecified; K57.90 Diverticulosis of intestine, part unspecified, without perforation or abscess without bleeding; K64.8 Other hemorrhoids; E87.5 Hyperkalemia; I25.10 Atherosclerotic heart disease of native coronary artery without angina pectoris; D72.829 Elevated white blood cell count, unspecified; K76.1 Chronic passive congestion of liver; E55.9 Vitamin D deficiency, unspecified; Z51.5 Encounter for palliative care; K59.09 Other constipation; Z85.828 Personal history of other malignant neoplasm of skin
CPT/HCPCS: 71010; 76700; 80053; 80074; 81001; 82040; 82140; 82550; 82552; 82570; 82810; 83036; 83735; 83930; 83935; 84100; 84132; 84300; 84443; 84550; 85007; 85027; 85610; 85730; 86850; 86900; 86901; 87086; 87205; 87641; 93005; 93456; 93925; 93931; 93971; 94010; 94150; C1769; C1893; C9113; J0610; J1644; J1815; J1940; J2060; J2250; J2270; J3010; Q9967